=== PATIENT | male | born 1930 | race Caucasian/White ===

== ENCOUNTER 2017-02-12 14:59 | Emergency (ER) | payer OTHER, MEDICARE ==
[2017-02-12 15:18] VITALS: BP 103/59; PULSE 68; TEMP 99; BMI 21.7
--- NOTE | 2017-02-12 16:02 | PDOC ---
History of Present Illness - General Chief Complaint: Injury Stated Complaint: FALL/LACERATION Time Seen by Provider: 02/12/17 15:28 History Source: Patient, Other ( ) Exam Limitations: No Limitations - History of Present Illness Initial Comments: 02/12/17 16:22 My Chief Complaint: fall, chin laceration and mid chin pain, abrasion rt. hand and left History of present illness: Patient is an 86 year old male with a history of hypothyroidism, CAD, hypertension, prostatectomy, [place], craniotomy due to intracranial bleed due to a fall in 2009 here today due to patient's falling forward on a speed bump in a parking lot hitting his chin and sustaining abrasion to his left hand and right hand. Patient was walking with his family they observed the fall and reports that he did not hit the back of his head or his knees. Patient did not lose any consciousness has been acting like himself and is able to ambulate as usual , is responding as usual does not have any hemotympanum or dizziness, nausea or vomiting or headache. He reports tenderness of chin at site of laceration. Patient is on Plavix family report and do not know the names of his other medications. Patient denies any visual changes. Patient has some bleeding around this gums left lower teeth. Tetanus is up-to-date with tetanus according to family. He denies any neck pain however patient's Hyperflexed his neck when he hit the ground with his chin however he denies neck pain. Patient is moving his arms and legs as usual. Pt. denies any difficulty opening his month, denies any mandible pain. Pt. is alert and oriented X3. 02/12/17 18:13 02/12/17 21:49 02/12/17 21:49 Occurred: reports: just prior to arrival Severity: reports: mild Pain Location: reports: face (chin, ) Method of Injury: Yes: fall (hitting his chin observed by family no loc) Modifying Factors: improves with: None Loss of Consciousness: no loss of consciousness Associated Symptoms (Fall): other (laceration chin, abrasion rt. hand over 2nd mcp, left hand fifth finger abrasion abrasion ) Past History - Past Medical History Allergies/Adverse Reactions: Allergies Allergy/AdvReac Type Severity Reaction Status Date / Time No Known Drug Allergies Allergy Verified 02/12/17 15:17 Home Medications: Ambulatory Orders Metformin HCl [Glucophage -] 500 mg PO DAILY #0 tablet 05/08/14 Metoprolol Succinate [Toprol XL -] 25 mg PO DAILY 05/30/14 Enalapril Maleate [Vasotec] 2.5 mg PO DAILY 07/21/14 Levothyroxine [Synthroid -] 25 mcg PO DAILY 09/22/16 Atorvastatin Ca [Lipitor] 20 mg PO HS #30 tablet 09/30/16 Clopidogrel Bisulfate [Plavix -] 75 mg PO DAILY #30 tablet 09/30/16 Furosemide [Lasix -] 40 mg PO DAILY #30 tablet 09/30/16 Potassium Chloride [K-Dur -] 20 meq PO DAILY #30 tablet.er 09/30/16 Ciprofloxacin [Cipro (Restricted To Id)] 500 mg PO Q12H #14 tablet 10/09/16 Anemia: No Asthma: No Cancer: No Cardiac Disorders: Yes ([place]) CVA: No COPD: No CHF: No DVT: No Dementia: No Diabetes: Yes GI Disorders: No Disorders: Yes (ENLARGED PROSTATE) HTN: No Hypercholesterolemia: No Liver Disease: No Seizures: No Thyroid Disease: No - Surgical History Abdominal Surgery: No Appendectomy: No Cardiac Surgery: No Cholecystectomy: No Lung Surgery: No Neurologic Surgery: Yes (BLEEDING S/P FALL 2009) Orthopedic Surgery: No - Immunization History Immunization Up to Date: Yes - Psycho/Social/Smoking Cessation Hx Anxiety: No Suicidal Ideation: No Smoking History: Never smoked Have you smoked in the past 12 months: No Hx Alcohol Use: No Drug/Substance Use Hx: No Substance Use Type: None Hx Substance Use Treatment: No Trauma Specific PMHX - Complaint Specific PMHX Back Injury: No Neck Injury: No Review of Systems - Review of Systems Able to Perform ROS?: Yes Constitutional: No: Symptoms Reported HEENTM: Yes: Dental Problems (multiple decay with slight bleeding around gum left lower, no loosening of teeth,), Other (no trismus ). No: Mouth Pain, Mouth Swelling Respiratory: No: Symptoms reported Cardiac (ROS): No: Symptoms Reported ABD/GI: No: Symptoms Reported : No: Symptoms Reported Musculoskeletal: No: Symptoms Reported Integumentary: Yes: Other (chin laceration ) Neurological: No: Symptoms reported *Physical Exam - Vital Signs Last Vital Signs Temp Pulse Resp BP Pulse Ox 99.0 F 68 20 103/59 95 02/12/17 15:14 02/12/17 15:14 02/12/17 15:14 02/12/17 15:14 02/12/17 15:14 - Physical Exam General Appearance: Yes: Appropriately Dressed HEENT: positive: EOMI, Other (multiple missing teeth multiple remaining with decay, left lower teeth laterally some bleeding around gum no loosening of teeth , no oral lacerations, tenderness of mid chin site of laceration, no trismus, is able to open mouth fully ). negative: Pharyngeal Erythema, Tonsillar Exudate, Tonsillar Erythema, Nasal Congestion, Rhinorrhea, Sinus Tenderness, Orbits Neck: negative: Lymphadenopathy (R), Lymphadenopathy (L), Rigidity, Tender lateral, Tender midline Respiratory/Chest: positive: Lungs Clear, Normal Breath Sounds. negative: Chest Tender, Respiratory Distress Cardiovascular: positive: Regular Rhythm, Regular Rate, S1, S2 Comments:: 02/12/17 16:19 radial pulse 4 + b/l Musculoskeletal: positive: Other (no tenderness of mandible when palpated b/l, slight mid, can open mouth fully, no trismus or clicking at TMJ when opening mouth). negative: Normal Inspection, Vertebral Tenderness Extremity: positive: Normal Capillary Refill. negative: Normal Inspection ( left 5th finger at dip jt slight malalignment with full range of motion of dip, pip and mcp ) Integumentary: positive: Other (laceration chin linear approx 3 cm x 0.5cm, abrasion pea size over rt. 2nd mcp, left fifth mcp, and lateral 5th finger ) Neurologic: positive: Fully Oriented, Alert, Normal Response, Respond to painful stimul, Responsive. negative: Numbness, Sensory Deficit Procedures - Consent Consent obtained: From Patient - Laceration/Wound Repair Both Face Wound Length: 2.6 to 5.0 cm Wound Explored: clean Wound's Depth, Shape: linear Irrigated w/ Saline: Yes Betadine Prep: Yes Anesthesia: 1% Lidocaine Amount of Anesthetic (ccs): 3 Wound Repaired With: Sutures, Steri-strips Suture Size/Type: 5:0 Number of Sutures: 8 (interrrupted ) Sterile Dressing Applied: No Medical Decision Making - Medical Decision Making 02/12/17 16:29 Patient is an 86 year old male with a history of hypothyroidism, CAD, hypertension, prostatectomy, [place], craniotomy due to intracranial bleed due to a fall in 2009 here today due to patient's falling forward on a speed bump in a parking lot hitting his chin and sustaining abrasion to his left hand and right hand. Patient was walking with his family they observed the fall and reports that he did not hit the back of his head or his knees. Patient did not lose any consciousness has been acting like himself and is able to ambulate as usual , is responding as usual does not have any hemotympanum or dizziness, nausea or vomiting or headache. He reports tenderness of chin at site of laceration. Patient is on Plavix family report and do not know the names of his other medications. Patient denies any visual changes. Patient has some bleeding around this gums left lower teeth. Tetanus is up-to-date with tetanus according to family. He denies any neck pain however patient's Hyperflexed his neck when he hit the ground with his chin. Patient is moving his arms and legs as usual. Fracture rt. neck of mandible laceration chin tenderness of chin superfical bleeding gum left lower abrasion rt. hand over 2nd mcp jt, abrasion left hand over 5 th mcp jt, 5th finger r/o fracture b/l hands/wrist r/o intracranial bleed r/o cervical neck fx r/o fx of mandible PLAN: [address] head without contrast there is previous left frontal parietal craniotomy. No evidence of fracture. There is no evidence of an acute intracranial process, intracranial hemorrhage or significant mass affect per CT cervical neck w/o contrast there is no evidence of fracture or posttraumatic subluxation of cervical spine. Cervical spondylosis. Fracture of neck of mandible on the right seen per CT of face w/o contrast there is a mildly comminuted, displaced and angulated fracture through the neck of the mandible on the right. There is no other evidence of facial fracture there is degenerative change of the left TMJ joint. Per xray b/l hands/ wrists no fractures noted FOLLOW UP WITH DR. SAMAYOA OR DR. MYERS FOR FRACTURE OF MANDIBLE OR DR. TAMAYO 02/12/17 18:02 02/12/17 18:16 02/12/17 21:49 *DC/Admit/Observation/Transfer Diagnosis at time of Disposition: Laceration of chin without complication Qualifiers: Encounter type: initial encounter Qualified Code(s): S01.81XA - Laceration without foreign body of other part of head, initial encounter Abrasion of hand, left Qualifiers: Encounter type: initial encounter Qualified Code(s): S60.512A - Abrasion of left hand, initial encounter Abrasion of hand Qualifiers: Encounter type: initial encounter Laterality: right Qualified Code(s): S60.511A - Abrasion of right hand, initial encounter Abrasion of finger, right Qualifiers: Encounter type: initial encounter Qualified Code(s): S60.419A - Abrasion of unspecified finger, initial encounter Fracture of mandible Qualifiers: Encounter type: initial encounter Fracture type: closed Mandible location: unspecified site of mandible Laterality: right Qualified Code(s): S02.609A - Fracture of mandible, unspecified, initial encounter for closed fracture - Discharge Dispostion Disposition: HOME Condition at time of disposition: Stable - Referrals Referrals: Wen Ledesma MD [Primary Care Provider] - Dom Samayoa MD [Staff Physician] - Ja Myers MD [Staff Physician] - - Patient Instructions Additional Instructions: CLEAN ABRASIONS ON RIGHT HAND AND LEFT HAND/' 5TH FINGER WITH ANTIBACTERIAL SOAP AND WATER, PAT DRY APPLY BACITRACIN OINTMENT COVER WITH BANDAID DURING THE DAY TAKE OFF AT NIGHT FOLLOW UP WITH PRIMARY CARE PROVIDER TOMORROW FOR FOLLOW UP KEEP LACERATION SITE TO CHIN DRY TODAY TOMORROW WET THOROUGHLY TAKE UP TAPE GENTLY AND CLEAN WITH ANTIBACTERIAL SOAP AND WATER, PAT DRY THAN APPLY TINY AMOUNT OF BACITRACIN OINTMENT SUTURE REMOVAL IN 7 DAYS EAT SOFT FOODS ONLY WILL BE LESS PAINFUL TO EAT YOU MUST FOLLOW UP WITH EITHER DR. SAMAYOA OR DR. MYERS FOR FRACTURE OF YOUR JAW ON THE RIGHT SIDED TAKE TYLENOL ONLY FOR PAIN PATIENT AND FAMILY VOICED UNDERSTANDING OF DISCHARGE INSTRUCTIONS AND ALL QUESTIONS WERE ANSWERED
== END 2017-02-12 18:13 | disposition home or self-care (01) ==
LOC: JERFT 14:59
PROC: 0HQ1XZZ Repair Face Skin, External Approach (ICD-10-PCS; principal; 2017-02-12)
DX: S01.81XA Laceration without foreign body of other part of head, initial encounter (principal); S60.512A Abrasion of left hand, initial encounter; S60.511A Abrasion of right hand, initial encounter; S60.419A Abrasion of unspecified finger, initial encounter; S02.609A Fracture of mandible, unspecified, initial encounter for closed fracture; W01.198A Fall on same level from slipping, tripping and stumbling with subsequent striking against other object, initial encounter; Y93.01 Activity, walking, marching and hiking; Y92.481 Parking lot as the place of occurrence of the external cause; E03.9 Hypothyroidism, unspecified; I25.10 Atherosclerotic heart disease of native coronary artery without angina pectoris; I10 Essential (primary) hypertension; I25.2 Old myocardial infarction
CPT/HCPCS: 70450-TC; 70486-TC; 72125-TC; 73110-TC-LT; 73110-TC-RT; 73130-TC-LT; 73130-TC-RT; 99281-25

== ENCOUNTER 2017-04-01 09:30 | Emergency (ER) | payer OTHER, MEDICARE ==
[2017-04-01 09:37] VITALS: BP 144/70; PULSE 69; TEMP 97.4; BMI 21.4
--- NOTE | 2017-04-01 10:03 | PDOC ---
History of Present Illness <Diana Arana - Last Filed: 04/01/17 15:59> - General History Source: Patient Exam Limitations: No Limitations - History of Present Illness Initial Comments: 04/01/17 10:13 The patient is an 86 year old male with a significant past medical history of NIDDM, BPH, CAD, hypothyroidism, hypertension, [place], and surgical history of craniotomy secondary to intracranial bleeding, who presents to the ER with blood in urine for 8 hours. Patient reports he began to urinate blood with no associated pain. As per family, patient has had a similar episode in the past when he was diagnosed with a UTI. Denies dysuria Denies back pain Denies lightheadedness Denies weakness or numbness Denies abdominal pain Urologist: Dr. Arriola and Dr. Brody <Gabriela Saini - Last Filed: 04/01/17 16:02> - General Chief Complaint: Hematuria Stated Complaint: URINATING BLOOD Time Seen by Provider: 04/01/17 09:41 Past History - Past Medical History Anemia: No Asthma: No Cancer: No Cardiac Disorders: Yes ([place]) CVA: No COPD: No CHF: No DVT: No Dementia: No Diabetes: Yes GI Disorders: No Disorders: Yes (ENLARGED PROSTATE) HTN: No Hypercholesterolemia: No Liver Disease: No Seizures: No Thyroid Disease: No - Surgical History Abdominal Surgery: No Appendectomy: No Cardiac Surgery: No Cholecystectomy: No Lung Surgery: No Neurologic Surgery: Yes (BLEEDING S/P FALL 2009) Orthopedic Surgery: No - Immunization History Immunization Up to Date: Yes - Psycho/Social/Smoking Cessation Hx Anxiety: No Suicidal Ideation: No Smoking History: Never smoked Have you smoked in the past 12 months: No Hx Alcohol Use: No Drug/Substance Use Hx: No Substance Use Type: None Hx Substance Use Treatment: No <Diana Arana - Last Filed: 04/01/17 15:59> <Gabriela Saini - Last Filed: 04/01/17 16:02> - Past Medical History Allergies/Adverse Reactions: Allergies Allergy/AdvReac Type Severity Reaction Status Date / Time No Known Drug Allergies Allergy Verified 04/01/17 09:35 Home Medications: Ambulatory Orders Metformin HCl [Glucophage -] 500 mg PO DAILY #0 tablet 05/08/14 Metoprolol Succinate [Toprol XL -] 25 mg PO DAILY 05/30/14 Enalapril Maleate [Vasotec] 2.5 mg PO DAILY 07/21/14 Levothyroxine [Synthroid -] 25 mcg PO DAILY 09/22/16 Atorvastatin Ca [Lipitor] 20 mg PO HS #30 tablet 09/30/16 Clopidogrel Bisulfate [Plavix -] 75 mg PO DAILY #30 tablet 09/30/16 Furosemide [Lasix -] 40 mg PO DAILY #30 tablet 09/30/16 Potassium Chloride [K-Dur -] 20 meq PO DAILY #30 tablet.er 09/30/16 Review of Systems - Review of Systems Able to Perform ROS?: Yes Comments:: 04/01/17 10:13 GENERAL/CONSTITUTIONAL: No fever or chills. No weakness. HEAD, EYES, EARS, NOSE AND THROAT: No change in vision. No ear pain or discharge. No sore throat. CARDIOVASCULAR: No chest pain or shortness of breath. RESPIRATORY: No cough, wheezing, or hemoptysis. GASTROINTESTINAL: No nausea, vomiting, diarrhea or constipation. GENITOURINARY: (+) hematuria. No dysuria, frequency MUSCULOSKELETAL: No joint or muscle swelling or pain. No neck or back pain. SKIN: No rash NEUROLOGIC: No headache, vertigo, loss of consciousness, or change in strength/ sensation. ENDOCRINE: No increased thirst. No abnormal weight change. HEMATOLOGIC/LYMPHATIC: No anemia, easy bleeding, or history of blood clots. ALLERGIC/IMMUNOLOGIC: No hives or skin allergy. <Yeny,Gabriela - Last Filed: 04/01/17 16:02> *Physical Exam - Vital Signs Last Vital Signs Temp Pulse Resp BP Pulse Ox 97.4 F L 69 20 144/70 99 04/01/17 09:32 04/01/17 09:32 04/01/17 09:32 04/01/17 09:32 04/01/17 09:32 <Diana Arana - Last Filed: 04/01/17 15:59> - Vital Signs Last Vital Signs Temp Pulse Resp BP Pulse Ox 97.4 F L 69 20 144/70 99 04/01/17 09:32 04/01/17 09:32 04/01/17 09:32 04/01/17 09:32 04/01/17 09:32 - Physical Exam Comments: 04/01/17 11:30 GENERAL: Awake, alert, and fully oriented, in no acute distress HEAD: No signs of trauma EYES: PERRLA, EOMI, sclera anicteric, conjunctiva clear ENT: Auricles normal inspection, hearing grossly normal, nares patent, oropharynx clear without exudates. Moist mucosa NECK: Normal ROM, supple, no lymphadenopathy, JVD, or masses LUNGS: Breath sounds equal, clear to auscultation bilaterally. No wheezes, and no crackles HEART: Regular rate and rhythm, normal S1 and S2, no murmurs, rubs or gallops ABDOMEN: Soft, nontender, normoactive bowel sounds. No guarding, no rebound. No masses EXTREMITIES: No CVA tenderness. Normal range of motion, no edema. No clubbing or cyanosis. No cords, erythema, or tenderness NEUROLOGICAL: Cranial nerves II through XII grossly intact. Normal speech, normal gait SKIN: Warm, Dry, normal turgor, no rashes or lesions noted. <Gabriela Saini - Last Filed: 04/01/17 16:02> ED Treatment Course - ADDITIONAL ORDERS Additional order review: Laboratory Results 04/01/17 10:00 Urine Color Red Urine Appearance Clear Urine pH 6.0 Urine Protein 1+ H D Urine Glucose (UA) Negative Urine Ketones Negative Urine Blood 3+ H Urine Nitrite Negative Urine Bilirubin Negative Urine Urobilinogen Negative Ur Leukocyte Esterase Negative <Gabriela Saini - Last Filed: 04/01/17 16:02> Medical Decision Making - Medical Decision Making No signs of stone on exam. UA neg for UTI. UCx pending. He has prior f/u with Dr. Brody, will call on Monday for appointment. <Diana Arana - Last Filed: 04/01/17 15:59> *DC/Admit/Observation/Transfer - Discharge Dispostion Admit: No <Diana Arana - Last Filed: 04/01/17 15:59> - Attestations Scribe Attestion: 04/01/17 10:14 Documentation prepared by Gabriela Saini, acting as program medical director for Diana Arana MD. <Gabriela Saini - Last Filed: 04/01/17 16:02> Diagnosis at time of Disposition: Hematuria - Discharge Dispostion Disposition: HOME Condition at time of disposition: Stable - Referrals Referrals: Kristian Brody MD., MD [Staff Physician] - - Patient Instructions Printed Discharge Instructions: DI for Hematuria
[2017-04-01 10:09] LABS: URINE APPEARANCE CLEAR; URINE BILIRUBIN NEGATIVE (NEGATIVE); URINE COLOR RED; URINE GLUCOSE (UA) NEGATIVE (NEGATIVE); URINE KETONE NEGATIVE (NEGATIVE); URINE LEUK ESTERASE NEGATIVE (NEGATIVE); URINE NITRITE NEGATIVE (NEGATIVE); URINE UROBILINOGEN NEGATIVE E.U./dl (0.2-1.0)
[2017-04-01 10:10] LABS: URINE BLOOD 3+ (NEGATIVE); URINE PROTEIN 1+ (NEGATIVE)
[2017-04-01 10:16] LABS: URINE RBC 1252 /hpf (0-3); URINE WBC 2 /hpf (3-5)
== END 2017-04-01 10:49 | disposition home or self-care (01) ==
LOC: JER 09:30
DX: R31.9 Hematuria, unspecified (principal); N40.0 Benign prostatic hyperplasia without lower urinary tract symptoms; I25.10 Atherosclerotic heart disease of native coronary artery without angina pectoris; I10 Essential (primary) hypertension; E11.9 Type 2 diabetes mellitus without complications; Z79.84 Long term (current) use of oral hypoglycemic drugs; E03.9 Hypothyroidism, unspecified
CPT/HCPCS: 81003; 81015; 87086; 99282-25

== ENCOUNTER 2017-12-09 05:12 | Emergency (ER) | payer OTHER, MEDICARE ==
[2017-12-09 05:22] VITALS: BP 121/78; PULSE 64; TEMP 98.6; BMI 26.5
--- NOTE | 2017-12-09 05:52 | PDOC ---
History of Present Illness - General Chief Complaint: Hematuria Stated Complaint: BLOOD IN URINE Time Seen by Provider: 12/09/17 05:44 History Source: Patient Exam Limitations: No Limitations - History of Present Illness Travel History: No Initial Comments: 12/09/17 07:18 Patient is an 87 year old male with a significant past medical history of Hematuria, NIDDM, BPH, CAD, hypothyroidism, hypertension, [place], who presents to the ED with complaints of hematuria that began last night. As per patient's , patient began to experience onset of hematuria yesterday night as well as this morning prompting her to bring the patient into the ED for further evaluation. Patient's reports patient experiencing same symptoms last year and was taken to see PCP, and resolved on its own. He reports experiencing intermittent constipation that sometimes has streaks of blood, but no melena. Patient reports experiencing multiple bilateral upper extremity bruising that began a few weeks ago when he bumps his arms on the bedrails. On ASA, but denies being on other anticoagulants. Denies lgihtheadedness, chest pain, Sob. Denies nausea, vomiting. Denies fevers , chills. Denies trauma to affected area. Denies dysuria, frequency, diarrhea. Denies any other symptoms. Allergies: None Social history: Lives with . No smoking. No alcohol. No illicit drugs. Surgical history: surgical history of craniotomy secondary to intracranial bleeding PMD: Dr. Brody. Past History - Past Medical History Allergies/Adverse Reactions: Allergies Allergy/AdvReac Type Severity Reaction Status Date / Time No Known Drug Allergies Allergy Verified 12/09/17 05:21 Home Medications: Ambulatory Orders metFORMIN HCL [Glucophage -] 500 mg PO DAILY #0 tablet 05/08/14 Metoprolol Succinate [Toprol XL -] 25 mg PO DAILY 05/30/14 Enalapril Maleate [Vasotec] 25 mg PO DAILY 07/21/14 Levothyroxine [Synthroid -] 25 mcg PO DAILY 09/22/16 Atorvastatin Ca [Lipitor] 20 mg PO HS #30 tablet 09/30/16 Aspirin [ASA -] 81 mg PO DAILY 12/09/17 Furosemide [Lasix -] 20 mg PO DAILY 12/09/17 Potassium Chloride [K-Dur -] 20 meq PO Q2D 12/09/17 Sulfamethoxazole/Trimethoprim [Bactrim Ds -] 1 tab PO BID #6 tablet 12/09/17 Tamsulosin HCl 0.4 mg PO DAILY 12/09/17 Anemia: No Asthma: No Cancer: No Cardiac Disorders: Yes ([place]) CVA: No COPD: No CHF: No DVT: No Dementia: No Diabetes: Yes GI Disorders: No Disorders: Yes (ENLARGED PROSTATE) HTN: No Hypercholesterolemia: No Liver Disease: No Seizures: No Thyroid Disease: No - Surgical History Abdominal Surgery: No Appendectomy: No Cardiac Surgery: No Cholecystectomy: No Lung Surgery: No Neurologic Surgery: Yes (BLEEDING S/P FALL 2009) Orthopedic Surgery: No - Immunization History Immunization Up to Date: Yes - Suicide/Smoking/Psychosocial Hx Smoking History: Never smoked Have you smoked in the past 12 months: No Information on smoking cessation initiated: No Hx Alcohol Use: No Drug/Substance Use Hx: No Substance Use Type: None Hx Substance Use Treatment: No Review of Systems - Review of Systems Able to Perform ROS?: Yes Comments:: 12/09/17 07:20 CONSTITUTIONAL: No reported: Fever, Chills, Diaphoresis, Generalized Weakness, Malaise, Loss of Appetite HEENT: No reported: Rhinorrhea, Nasal Congestion, Throat Pain, Throat Swelling, Difficulty Swallowing, Mouth Swelling, Ear Pain, Eye Pain, Visual Changes CARDIOVASCULAR: No reported: Chest Pain, Syncope, Palpitations, Irregular Heart Rate, Lightheadedness, Peripheral Edema RESPIRATORY: No reported: Cough, Shortness of Breath, SOB with Exertion, Orthopnea, Wheezing , Stridor, Hemoptysis GASTROINTESTINAL: +Constipation. +Bloody stool. No reported: Abdominal pain, Abdominal Distension, Nausea, Vomiting, Diarrhea, Melena GENITOURINARY: +Hematuria. No reported: Dysuria, Frequency, Urgency, Hesitancy, Flank Pain, Genital Pain MUSCULOSKELETAL: No reported: Myalgia, Arthralgia, Joint Swelling, Back pain, Neck Pain SKIN: No reported: Rash, Itching, Pallor HEMATOLOGIC/IMMUNOLOGIC: No reported: Easy Bleeding, Easy Bruising, Lymphadenopathy, Frequent infections ENDOCRINE: No reported: Unexplained Weight Gain, Unexplained Weight Loss, Heat Intolerance , Cold Intolerance NEUROLOGIC: No reported: Headache, Focal Weakness, Paresthesias, Vertigo, Lightheadedness, Unsteady Gait, Seizure, Mental Status Changes, Incontinence PSYCHIATRIC: No reported: Anxiety, Depression *Physical Exam - Vital Signs Last Vital Signs Temp Pulse Resp BP Pulse Ox 98.6 F 64 20 121/78 97 12/09/17 05:21 12/09/17 05:21 12/09/17 05:21 12/09/17 05:21 12/09/17 05:21 - Physical Exam Comments: 12/09/17 07:20 GENERAL: The patient is awake, alert, and fully oriented, Nontoxic - in no acute distress. HEAD: Normocephalic, atraumatic. EYES: extraocular movements intact, sclera anicteric, conjunctiva clear. ENT: Normal voice, Moist mucous membranes. NECK: Normal range of motion, No JVD LUNGS: Breath sounds equal, clear to auscultation bilaterally. No wheezes, no rhonchi, no rales. HEART: Regular rate and rhythm, normal S1 and S2 without murmur, rub or gallop. ABDOMEN: Soft, nontender, normoactive bowel sounds. No guarding, no rebound. No masses. No CVA tenderness PENILE EXAM: Normal. No lesions. No lacerations. No active bleeding EXTREMITIES: Normal range of motion, no edema. No clubbing or cyanosis. No cords , erythema, or tenderness. NEUROLOGICAL: No facial asymmetry, Normal speech, normal gait. PSYCH: Normal mood, normal affect. SKIN: Warm, Dry, normal turgor. ED Treatment Course - LABORATORY CBC & Chemistry Diagram: 12/09/17 06:32 12/09/17 06:32 Medical Decision Making - Medical Decision Making 12/09/17 06:35 ddx uti but will ck labs to r/o anemia, low platelets, elevated INR 12/09/17 07:21 UA suggestive of UTI will give bactrim awaiting CMP if labs normal can be dc with rx for bactrim and PMD fu pt signed out to dr. Wright to reassess 12/09/17 07:48 pts cmp returned i will dc the pt with course of bactrim return precautions were discussed will have pt fu with dr. duff and dr. ruiz I discussed the physical exam findings, ancillary test results and final diagnoses with the patient. I answered all of the patient's questions. The patient was satisfied with the care received and felt comfortable with the discharge plan and treatment plan. The patient will call their primary care physician within 24 hours to arrange follow-up and will return to the Emergency Department with any new, persistent or worsening symptoms. *DC/Admit/Observation/Transfer Diagnosis at time of Disposition: Urinary tract infection Qualifiers: Urinary tract infection type: site unspecified Hematuria presence: with hematuria Qualified Code(s): N39.0 - Urinary tract infection, site not specified ; R31.9 - Hematuria, unspecified; R31.9 - Hematuria, unspecified Hematuria Qualifiers: Hematuria type: gross Qualified Code(s): R31.0 - Gross hematuria - Discharge Dispostion Disposition: HOME Condition at time of disposition: Stable Admit: No - Referrals Referrals: John Duff MD [Staff Physician] - Kristian Brody MD., MD [Staff Physician] - - Patient Instructions Printed Discharge Instructions: DI for Urinary Tract Infection (UTI) Additional Instructions: Return to the emergency department immediately with ANY new, persistent or worsening symptoms. Please continue your antibiotics until they are completed You MUST call and follow up with your Dr Will for further evaluation of your symptoms. Results were discussed with you. Please make sure your doctor reviews the results of your emergency evaluation. Print Language: BULGARIAN - Post Discharge Activity
[2017-12-09 06:51] LABS: BASO % 1.2 % (0-2.0); EOS % 1.7 % (0-4.5); HEMATOCRIT 34.6 % (35.4-49); HEMOGLOBIN 11.5 GM/dL (11.7-16.9); LYMPH % 31.1 % (8-40); MCH 30.8 pg (25.7-33.7); MCHC 33.4 g/dl (32.0-35.9); MEAN CELL VOLUME 92.3 fl (80-96); MEAN PLT VOLUME 6.9 fl (7.5-11.1); MONO % 8.2 % (3.8-10.2); NEUT % 57.8 % (42.8-82.8); PLATELET COUNT 237 K/MM3 (134-434); RBC 3.74 M/mm3 (4.00-5.60); RDW 14.2 % (11.9-15.9); WHITE BLOOD COUNT 7.6 K/mm3 (4.0-10.0)
[2017-12-09 07:03] LABS: INR 1.1 (0.82-1.09); PROTHROMBIN TIME (PATIENT) 12.4 SEC (9.98-11.88)
[2017-12-09 07:08] LABS: URINE APPEARANCE CLOUDY; URINE BILIRUBIN NEGATIVE (NEGATIVE); URINE BLOOD 3+ (NEGATIVE); URINE COLOR DK. RED; URINE GLUCOSE (UA) TRACE (NEGATIVE); URINE KETONE 2+ (NEGATIVE); URINE LEUK ESTERASE 2+ (NEGATIVE); URINE NITRITE POSITIVE (NEGATIVE); URINE PROTEIN 3+ (NEGATIVE); URINE UROBILINOGEN >=8.0 E.U./dl mg/dL (0.2-1.0)
[2017-12-09] MEDS ORDERED: SULFAMETHOXAZOLE/TRIMETHOPRIM 800MG/160MG D.S. TABLET PO ONE (07:12)
[2017-12-09] MEDS ORDERED: SULFAMETHOXAZOLE/TRIMETHOPRIM 800MG/160MG D.S. TABLET ONE (07:17)
[2017-12-09 07:37] LABS: ALBUMIN 3.5 g/dl (3.4-5.0); ALK PHOS 63 U/L (45-117); ANION GAP 6 (8-16); BILIRUBIN,TOTAL 0.9 mg/dL (0.2-1.0); BLOOD UREA NITROGEN 20 mg/dL (7-18); CALCIUM 8.4 mg/dL (8.5-10.1); CHLORIDE 101 mmol/L (98-107); CO2 28 mmol/L (21-32); GLUCOSE,RANDOM 120 mg/dL (74-106); POTASSIUM 4.6 mmol/L (3.5-5.1); SGOT/AST 21 U/L (15-37); SGPT/ALT 50 U/L (12-78); SODIUM 135 mmol/L (136-145); TOT PROT 6.1 g/dl (6.4-8.2)
== END 2017-12-09 08:28 | disposition home or self-care (01) ==
LOC: JER 05:12
DX: N39.0 Urinary tract infection, site not specified (principal); R31.0 Gross hematuria; I25.10 Atherosclerotic heart disease of native coronary artery without angina pectoris; I10 Essential (primary) hypertension; I25.2 Old myocardial infarction; E11.9 Type 2 diabetes mellitus without complications; Z79.84 Long term (current) use of oral hypoglycemic drugs; E03.9 Hypothyroidism, unspecified; N40.0 Benign prostatic hyperplasia without lower urinary tract symptoms
CPT/HCPCS: 36415; 80053; 81003; 81015; 85025; 85610; 87086; 99282-25

== ENCOUNTER 2017-12-20 14:35 | Emergency (ER) | payer OTHER, MEDICARE ==
[2017-12-20 14:53] VITALS: BP 107/59; PULSE 58; TEMP 97; BMI 20.7
--- NOTE | 2017-12-20 14:55 | PDOC ---
Rapid Medical Evaluation Time Seen by Provider: 12/20/17 14:50 Medical Evaluation: Allergies Allergy/AdvReac Type Severity Reaction Status Date / Time No Known Drug Allergies Allergy Verified 12/09/17 05:21 12/20/17 14:51 I have performed a brief in-person evaluation of this patient. The patient presents with a chief complaint of:Tripped and fell at 1:30PM, no LOC as per sister who witnessed fall. Pt denies GILBERT dizziness, n/v. No back/hip pain. Ambulatory in ED. H/o BPH, DM, CAD, HI on baby asa Pertinent physical exam findings:Stable w/ small superficial lac to chin, exam otherwise unremarkable I have ordered the following:CT head The patient will proceed to the ED for further evaluation. Discharge Disposition - Referrals Referrals: Wen Ledesma MD [Primary Care Provider] - - Patient Instructions - Post Discharge Activity
--- NOTE | 2017-12-20 15:37 | PDOC ---
History of Present Illness - General Chief Complaint: Injury Stated Complaint: FELL Time Seen by Provider: 12/20/17 14:50 History Source: Patient, Care Provider (sister) Exam Limitations: No Limitations - History of Present Illness Initial Comments: 12/20/17 15:36 CHIEF COMPLAINT: Mechanical fall, laceration to chin HISTORY OF PRESENT ILLNESS: Patient is an 87 year old male with a significant past medical history of Hematuria, NIDDM, BPH, CAD, hypothyroidism, hypertension , PA, who presents to the ED after mechanical fall, patient reports that he was walking tripped braced his fall with his hands however hit his chin and the left cheek on the ground. No LOC. Denies hitting his head. Was able to get up immediately. Incident occurred approximately 1:30 PM unwitnessed patient to the emergency department because of bleeding noted to chin uncontrolled. Patient is currently on at one aspirin a day. Denies headache. MEDS:[ See medication list] ALLERGIES: [None] PCP: [Dr. Wen Verduzco] REVIEW OF SYSTEMS: GENERAL/CONSTITUTIONAL: Awake alert and oriented HEAD, EYES, EARS, NOSE AND THROAT: No change in vision. No facial edema, no bruising. NO active bleeding. Nares intact. RESPIRATORY: No cough, wheezing, or hemoptysis. CARDIAC: Denies chest pain, no shortness of breathe. MUSCULOSKELETAL: No spinal point tenderness, Good ROM to all four extremeties. NO CVA tenderness. [No] lateral neck pain. GI/: Denies abdominal pain, no nausea or vomiting, no bloody stool, no Hematuria. SKIN : 1 cm laceration to chin no active bleeding, bruising noted to palm of left hand and bruise noted to left cheek. No edema. NEUROLOGIC: No loss of consciousness, no numbness or tingling. PHYSICAL EXAM: GENERAL: Awake and alert and oriented x3. EYES: The pupils are equal, round, and reactive to light, with clear, conjunctiva. Good extraocular movement. No nystagmus NOSE: No nasal trauma . Midface stable MOUTH: Teeth intact. EARS: The ear canals and tympanic membranes are normal without trauma. No drainage. NECK: No Lower cervical C-spine tenderness, no pain with chin to chest. CHEST: The lungs are clear without crackles, or wheezes. No subcutaneous emphysema. No crepitus. HEART: Heart is regular rhythm, with normal S1 and S2, no murmurs. ABDOMEN: The abdomen is soft and nontender with normal bowel sounds. There is no guarding or rebound. MUSCULOSKELETAL: No spinal point tenderness. No bruising or erythema. Pelvis stable. EXTREMITIES: Extremities are normal. No visible traumatic injury. NEUROLOGICAL:Mental status: The patient is oriented x3. No Generalized headache , Romberg [-] Cranial nerves: Cranial nerves II through XII are intact Motor: The upper extremities are 5 over 5 in all muscle groups. The lower extremities are 5 over 5 in all muscle groups. Sensation: Sensation is intact to light touch throughout. Cerebellar: Gozpic-nfopyl-dfku is normal in both upper extremities. Heel-knee- trejo is normal in both lower extremities. Reflexes: 2+ and symmetric in the upper and lower extremities. Gait: Normal. Heel and toe walking are normal. Tandem gait is normal. SKIN: 1 cm laceration to chin no active bleeding, bruising noted to palm of left hand and bruise noted to left cheek. No edema. Past History - Past Medical History Allergies/Adverse Reactions: Allergies Allergy/AdvReac Type Severity Reaction Status Date / Time No Known Drug Allergies Allergy Verified 12/20/17 14:54 Home Medications: Ambulatory Orders metFORMIN HCL [Glucophage -] 500 mg PO DAILY #0 tablet 05/08/14 Metoprolol Succinate [Toprol XL -] 25 mg PO DAILY 05/30/14 Enalapril Maleate [Vasotec] 25 mg PO DAILY 07/21/14 Levothyroxine [Synthroid -] 25 mcg PO DAILY 09/22/16 Atorvastatin Ca [Lipitor] 20 mg PO HS #30 tablet 09/30/16 Aspirin [ASA -] 81 mg PO DAILY 12/09/17 Furosemide [Lasix -] 20 mg PO DAILY 12/09/17 Potassium Chloride [K-Dur -] 20 meq PO Q2D 12/09/17 Tamsulosin HCl 0.4 mg PO DAILY 12/09/17 Anemia: No Asthma: No Cancer: No Cardiac Disorders: Yes ([place]) CVA: No COPD: No CHF: No DVT: No Dementia: No Diabetes: Yes GI Disorders: No Disorders: Yes (ENLARGED PROSTATE) HTN: No Hypercholesterolemia: No Liver Disease: No Seizures: No Thyroid Disease: No - Surgical History Abdominal Surgery: No Appendectomy: No Cardiac Surgery: No Cholecystectomy: No Lung Surgery: No Neurologic Surgery: Yes (BLEEDING S/P FALL 2009) Orthopedic Surgery: No - Immunization History Immunization Up to Date: Yes - Suicide/Smoking/Psychosocial Hx Smoking History: Never smoked Have you smoked in the past 12 months: No Hx Alcohol Use: No Drug/Substance Use Hx: No Substance Use Type: None Hx Substance Use Treatment: No Trauma Specific PMHX - Complaint Specific PMHX Back Injury: No Neck Injury: No *Physical Exam - Vital Signs Last Vital Signs Temp Pulse Resp BP Pulse Ox 97 F L 58 L 18 107/59 100 12/20/17 14:51 12/20/17 14:51 12/20/17 14:51 12/20/17 14:51 12/20/17 14:51 Medical Decision Making - Medical Decision Making 12/20/17 15:44 A/P: Patient here for mechanical fall, laceration to chin wound is superficial able to be repaired with Dermabond. Patient's sister is at patient's bedside . Patient denies any headache, denies hitting his head, is refusing head CT which was ordered by practitioner in triage. I've explained to patient that if he did hit his head, on aspirin, he is susceptible to an intracranial bleed, or even , he verbalized understanding is still refusing. I have also spoken to patient's sister who is at the bedside and is aware that if patient did his head on aspirin and has potential to bleed which can cause change in mental status, or even . She verbalized understanding, and is agreement with the brother to refuse CT scan of the head. 12/20/17 15:[address] Verduzco awaiting call back to discuss patient refusal of CT scan. 12/20/17 16:47 Dr. Kaye returned call, made aware that patient as well as sister both refusing head CT patient also denies being on Plavix reports that he was taken off. Patient reassessed, there is bruising noted to the dorsum of the left hand with good range of motion, no other visible injuries noted besides laceration to left lateral chin and bruising to left upper cheek. I have explained again to sister as well as patient that aspirin may cause bleeding which can cause bleeding in the head after a fall, chance of intracranial hemorrhage or even . Patient again refused. Patient is awake alert and oriented with no change from baseline mental status. Will discharge patient home, supportive care , follow up with Dr. Kaye tomorrow. If any vomiting, headache, increased bruising, or change in mental status, or any other concerns return to ER 12/20/17 16:57 12/20/17 16:58 *DC/Admit/Observation/Transfer Diagnosis at time of Disposition: Fall, Laceration of chin, Bruising - Discharge Dispostion Disposition: HOME Condition at time of disposition: Stable - Referrals Referrals: Wen Ledesma MD [Primary Care Provider] - - Patient Instructions Additional Instructions: Ice to bruises, recommend follow-up with Dr. Kaye tomorrow If any vomiting, headache, change in mental status, lethargy, or any other concerns return to ER immediately - Post Discharge Activity
== END 2017-12-20 17:00 | disposition home or self-care (01) ==
LOC: JERFT 14:35
DX: S01.81XA Laceration without foreign body of other part of head, initial encounter (principal); S60.222A Contusion of left hand, initial encounter; S00.83XA Contusion of other part of head, initial encounter; W01.0XXA Fall on same level from slipping, tripping and stumbling without subsequent striking against object, initial encounter; Y93.89 Activity, other specified; Y92.018 Other place in single-family (private) house as the place of occurrence of the external cause; I25.10 Atherosclerotic heart disease of native coronary artery without angina pectoris; I10 Essential (primary) hypertension; I25.2 Old myocardial infarction; E03.9 Hypothyroidism, unspecified; N40.0 Benign prostatic hyperplasia without lower urinary tract symptoms; Z79.82 Long term (current) use of aspirin
CPT/HCPCS: 99281-25

== ENCOUNTER → 2018-07-26 | Emergency (ER) | payer OTHER, MEDICARE ==
[~2018-07-26] MED LIST: CALCIUM CHLORIDE 1 GM/10 ML *DISP.SYRIN ONE; EPINEPHrine 1:10,000 (P-F SYR) 1 MG/10 ML DISP.SYRIN ONE; SODIUM BICARBONATE 8.4% - 50 ML ONE
--- NOTE | 2018-07-26 15:55 | PDOC ---
Attending Attestation - Resident Resident Name: Janine Potter - ED Attending Attestation I have performed the following: I have examined & evaluated the patient, The case was reviewed & discussed with the resident, I agree w/resident's findings & plan, Exceptions are as noted - HPI HPI: 07/26/18 15:55 87y M hx of NIDDM, hematuria, bph, cad, hypothyfoidsim, htn, cad s/p ND presents with cardiac arrest. The patient was found to be down in the street, family notes he left for a wlk approx 1 hr prior to EMS arrival and he was fine this morning without any complaints. On arrival the pt was nonresponsive, was intubated in the field and ACLS was started with multiple rounds of epi, bicarb , cacl, glucose was 171. Per EMS pt had ROSC with improvement of his end tidal. Upon arrival the pt was in PEA, ACLS was continued in the ED without improvement of his cardiac status. echo showed no organized activity at any time in the ED and pt was pronounced at 3:36. The patients sister (david) was notified immediately afterwards. - Physicial Exam PE: 07/26/18 16:08 general: nonresponsive HEENT: ETT in place, contusion on posterior scalp, CARD: no cardiac activity PULM: mechanical vent, breath sounds clear b/l abd: soft nontender, no eccyymosis neuro: pupils fixed 6mm nonreactive to light, nonresponsive - Critical Care Time Total Critical Care Time: 45 Critical Care Statement: The care of this patient involved high complexity decision making to prevent further life threatening deterioration of the patient 's condition and/or to evaluate & treat vital organ system(s) failure or risk of failure. - Medical Decision Making 07/26/18 16:10 see above
--- NOTE | 2018-07-26 16:02 | PDOC ---
History of Present Illness - General Chief Complaint: Cardiac Arrest Stated Complaint: Cardiac Arrest Time Seen by Provider: 07/26/18 15:52 History Source: EMS Exam Limitations: Clinical Condition - History of Present Illness Initial Comments: 07/26/18 15:56 This is an 87 YOM with h/o NIDDM, CAD s/p [place], HTN, hypothyroidism, and prior traumatic ICH (sister states ~10 yearsago) who was BIBEMS in cardiac arrest after being found down outside his home by a stranger who called 911 because the patient was unresponsive. Family notes that the patient had left his home to go on a walk about an hour prior. EMS arrived to find the patient in asystole and they placed a left EJ. They administered epi x3, atropine x2, bicarb, and calcium, and did CPR, with only fleeting ROSC which would quickly become bradycardic and result in faint pulses and soon after PEA. Here in the ED , the patient remains unconscious, pupils fixed and dilated (as EMS says they were when the patient was found on scene), no brainstem reflexes, extremities cool. Past History - Past Medical History Allergies/Adverse Reactions: Allergies Allergy/AdvReac Type Severity Reaction Status Date / Time No Known Drug Allergies Allergy Verified 07/26/18 16:15 Home Medications: Ambulatory Orders metFORMIN HCL [Glucophage -] 500 mg PO DAILY #0 tablet 05/08/14 Metoprolol Succinate [Toprol XL -] 25 mg PO DAILY 05/30/14 Enalapril Maleate [Vasotec] 25 mg PO DAILY 07/21/14 Levothyroxine [Synthroid -] 25 mcg PO DAILY 09/22/16 Atorvastatin Ca [Lipitor] 20 mg PO HS #30 tablet 09/30/16 Aspirin [ASA -] 81 mg PO DAILY 12/09/17 Furosemide [Lasix -] 20 mg PO DAILY 12/09/17 Potassium Chloride [K-Dur -] 20 meq PO Q2D 12/09/17 Tamsulosin HCl 0.4 mg PO DAILY 12/09/17 Anemia: No Asthma: No Cancer: No Cardiac Disorders: Yes ([place]) CVA: No COPD: No CHF: No DVT: No Dementia: No Diabetes: Yes GI Disorders: No Disorders: Yes (ENLARGED PROSTATE) HTN: No Hypercholesterolemia: No Liver Disease: No Seizures: No Thyroid Disease: No - Surgical History Abdominal Surgery: No Appendectomy: No Cardiac Surgery: No Cholecystectomy: No Lung Surgery: No Neurologic Surgery: Yes (BLEEDING S/P FALL 2009) Orthopedic Surgery: No - Immunization History Immunization Up to Date: Yes - Suicide/Smoking/Psychosocial Hx Smoking History: Never smoked Have you smoked in the past 12 months: No Hx Alcohol Use: No Drug/Substance Use Hx: No Substance Use Type: None Hx Substance Use Treatment: No Review of Systems - Review of Systems Able to Perform ROS?: No (clinical condition) *Physical Exam - Vital Signs Initial Vital Signs Pulse Resp BP 0 L 0 L 0/0 L 07/26/18 15:25 07/26/18 15:25 07/26/18 15:25 GENERAL: Unconscious, intubated, PIV in place which is functional HEENT: Pupils fixed and dilated, no oropharyngeal bleeding, ET tube in place with good expiratory condensation, no tracheal deviation, right occiput with scalp contusion without significant laceration, not boggy, no additional e/o skull fxr or facial bone fxr NECK: No spinal stepoff or deformity, supple CARDIOVASCULAR: Regular rate and rhythm, normal S1S2, MGR, radial and DP pulses 2+ and symmetric, capillary refill <2 seconds, extremities warm and well- perfused Chest wall: Skin trauma present to anterior mid-chest from chest compressions, no flail chest, no grossly visible costal stepoff or deformity LUNGS/RESPIRATORY: Intubated, bagged/vented, breath sounds equal, symmetric chest wall expansion and contraction with breaths GI/ABDOMEN: Normal symmetric appearance, soft, nondistended, no palpated organomegaly : Normal external appearance, no lesions BACK: No stepoff or deformity of thoracic or lumbar spine EXTREMITIES: BUE and BLE cool and clammy SKIN: Extremities cool, clammy, mottled, pale, slight acral cyanosis, no jaundice, no rash, no skin breakdown, no cuts, no lesions, no hematomas NEUROLOGICAL: GCS 3, pupils fixed and dilated, no brainstem reflexes, no spontaneous respiration Procedures - Bedside Ultrasound Bedside Ultrasound: Cardiac Remarks: 07/26/18 15:30 Study: Cardiac/bedside echo Indications: Cardiac arrest Findings: Small sporadic movement but no organized activity, no tamponade Conclusion: No e/o organized cardiac activity. Medical Decision Making - Medical Decision Making 07/26/18 16:51 Pt p/w cardiopulmonary arrest. Initial Vital Signs Pulse Resp BP 0 L 0 L 0/0 L 07/26/18 15:25 07/26/18 15:25 07/26/18 15:25 Exam: As noted in Physical Exam section.Unconscious, CPR ongoing, cool and mottled extremities POC US: No cardiac activity identified, see procedures section DDX IBNLT: Hypovolemia, hypoxemia, H+ ions (acidosis), hyperkalemia, hypokalemia , hypoglycemia, hypothermia, tamponade, tension PTX, thrombosis ([place] or PE), trauma, toxins (e.g. toxic overdose) Patient's electrical activity alternating between PEA (sinus bradycardia) and asystole, with very short periods of V-fib during which time there is not a long enough window to shock. W/U ordered: Monitor, FSBG [place] ordered: Transcutaneous pacer applied, O2, AmbuBag, Rapid IVF resuscitation, CPR, and the following per ACLS protocol: Epi x4 total Atropine x2 total Bicarb x1 amp Calcium Cl x1 amp Magnesium 2 mg See RN notes for times of administration. Laboratory Tests 07/26/18 15:29 POC Glucometer [id number] Sustained ROSC is not achieved and the Pt is pronounced at 3:36 pm. Diagnosis on expiration is cardiopulmonary arrest. Family is notified and questions are answered. Family is seeing patient in resus room. I called PCP Wen Ledesma at 16:00. Medical examiners office is called. Case #[id number]. [employer]. 07/26/18 17:01 Family has said goodbye to the patient. They are leaving to go to the home and make arrangements with them. They will have the home call [facility] ED to make arrangements. *DC/Admit/Observation/Transfer Diagnosis at time of Disposition: Cardiopulmonary arrest - Discharge Dispostion Condition at time of disposition: - Referrals Referrals: Wen Ledesma MD [Primary Care Provider] - - Patient Instructions - Post Discharge Activity
[2018-07-26 16:24] VITALS: BP 0/0; PULSE 0; BMI 18.8
== END | disposition expired ==
LOC: JER 15:25
PROC: 5A02216 Assistance with Cardiac Output using Other Pump, Continuous (ICD-10-PCS; principal; 2018-07-26)
DX: I46.9 Cardiac arrest, cause unspecified (principal); I25.10 Atherosclerotic heart disease of native coronary artery without angina pectoris; I10 Essential (primary) hypertension; I25.2 Old myocardial infarction; E11.9 Type 2 diabetes mellitus without complications; Z79.84 Long term (current) use of oral hypoglycemic drugs; E03.9 Hypothyroidism, unspecified; Z79.82 Long term (current) use of aspirin; Z87.820 Personal history of traumatic brain injury
CPT/HCPCS: 82962; 99282-25